=== PATIENT | male | born 1935 | race Caucasian/White ===

== ENCOUNTER → 2017-01-22 | Outpatient (CLI) | payer MEDICARE, OTHER ==
[~2017-01-22] MED LIST: AMITRYPTYLINE PO; ANTIVERT PO; ASPIRIN EC81 M1 PO; ASPIRIN81 M1 PO; ASPIRIN81 M2 PO; AVODART0.5 MG PO; B-121000 MC1 PO; CELEBREX PO; DIOVAN PO; DIOVAN160 MG PO; DOCUSATE SODIU100 MG PO; ELIQUIS5 MG PO; FIBER LAXATIVE0.52 G PO; FIBER0.52 G PO; FINASTERIDE5 MG PO; FLOMAX0.4 M1 PO; FLOMAX0.4 MG PO; HYDROCHLOROTHIA25 MG PO; JALYN 0.5-0.41 EACH PO; KEFLEX PO; LIPITOR40 MG PO; LOVENOX40 MG/0.4 SUBQ; MECLIZINE HCL12.5 MG PO; METOPROLOL SUCC50 MG PO; MULTI VITAMIN1 EACH PO; MULTI-VITAMIN1 TAB PO; MULTIVITAMIN1 UDCAP PO; NORCO1 TAB 10/3 PO; PERCOCET 5/321 UDTAB PO; PERCOCET5/325 PO; PROSCAR5 MG PO; PSYLLIUM FIBER PO; TAMOXIFEN CITRA20 MG PO; TOPROL XL50 MG PO; VALSARTAN-HCTZ1 EAC2 PO; VITAMIN B 6; VITAMIN B12 PO
--- NOTE | ~2017-01-22 | US37 ---
[facility] A Service of [facility] RADIOLOGY TEXT RESULTS PATIENT: CHARLES SHEPARD SR LOCATION: [facility] : 34 UNIT #: [id number] AGE: [address]: Hue Do MD SEX: M ORDER DR: [id number] [facility] [address] [place], [place] [address] [id number] O MR#: [id number] Acc #: [id number] NAME: CHARLES SHEPARD SR : 1935 SEX: M STUDY DATE/TIME: 01/22/2017 10:39 UNIT: [facility]IV ROOM: STUDY DESCRIPTION: US Carotid W/Doppler Bilateral Attending Physician: Hue Do M.D. Referring Physician: Hue Do M.D. Ordering Physician: Hue oD M.D. Primary Care Physician: Yessenia Carias M.D. MEDICAL IMAGING REPORT This report is preliminary unless electronic signature is present EXAM Bilateral carotid Doppler, 01/22/2017. HISTORY Carotid stenosis. History of right carotid endarterectomy. FINDINGS The right common carotid, internal carotid and external carotid arteries are widely patent without plaque or intimal thickening. Velocity of the common carotid artery is 70 cm/sec. Peak systolic velocity of the right proximal internal carotid artery is 66 cm/sec, with an end diastolic velocity of 13 cm/sec, for an ICA:CCA ratio of 0.95. External carotid artery velocity of 143 cm/sec. The vertebral artery is visualized with antegrade flow. The left common carotid, internal carotid, and external carotid arteries are patent with mild plaque in the carotid bulb and internal carotid artery. Velocity at the common carotid artery is 81 cm/sec. Peak systolic velocity of the left proximal internal carotid artery is 51 cm/sec, with an end diastolic velocity of 12 cm/sec, for an ICA:CCA ratio of 0.63. External carotid artery velocity of 156 cm/sec. The vertebral artery is visualized with antegrade flow. IMPRESSION 1. Normal appearance without stenosis of the right internal carotid artery and less than 50% stenosis of the left internal carotid artery. 2. No stenosis of the external carotid arteries. 3. Antegrade flow of the vertebral arteries. Dictated by... Hue Do M.D. [facility] A Service of [facility] RADIOLOGY TEXT RESULTS PATIENT: CHARLES SHEPARD SR LOCATION: [facility] : 34 UNIT #: [id number] AGE: [address]: Hue Do MD SEX: M ORDER DR: THIS IS AN ELECTRONICALLY VERIFIED REPORT Hue Do M.D. at 01/23/2017 11:49 AM João TD: 01/22/2017 18:54 JOB #: [id number] MEDICAL IMAGING REPORT Page 1 of 1 COPY
== END | disposition home or self-care (01) ==
LOC: CNIV 10:04
DX: I65.23 Occlusion and stenosis of bilateral carotid arteries (principal)
CPT/HCPCS: 93880

== ENCOUNTER 2017-01-27 15:34 | Emergency (ER) | payer MEDICARE, OTHER ==
--- NOTE | ~2017-01-27 | CR173 ---
[facility] A Service of [facility] RADIOLOGY TEXT RESULTS PATIENT: CHARLES SHEPARD SR LOCATION: [facility] : 34 UNIT #: [id number] AGE: [address]: Srinivas Pinto MD SEX: M ORDER DR: [id number] [facility] [address] [place], [place] [address] [id number] E MR#: [id number] Acc #: [id number] NAME: CHARLES SHEPARD SR : 1935 SEX: M STUDY DATE/TIME: 01/27/2017 15:46 UNIT: [facility] ROOM: STUDY DESCRIPTION: CR Knee 3 Views Rt Attending Physician: Srinivas Pinto M.D. Ordering Physician: Srinivas Pinto M.D. Primary Care Physician: Yessenia Carias M.D. MEDICAL IMAGING REPORT This report is preliminary unless electronic signature is present EXAM Right knee, 3 views COMPARISON None INDICATIONS 81-year-old male with right knee pain and swelling since yesterday. Patient felt a pop after rising from the seated position. FINDINGS Dense arterial calcifications are seen above and below the knee. There is no suprapatellar effusion. There is mild patellofemoral osteophyte formation. There is a moderate enthesophyte at the superior pole of the patella. Fabella is noted, a normal anatomic variant. There is suggestion of joint space narrowing at the medial and lateral compartments, not well evaluated without a weightbearing view. IMPRESSION 1. No acute fracture, dislocation or suprapatellar effusion. 2. Suggestion of significant joint space narrowing at the medial and lateral compartments, not well evaluated without weightbearing views. 3. 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 4. Diffuse arterial calcifications. Dictated by... Fred Garcia M.D. THIS IS AN ELECTRONICALLY VERIFIED REPORT Fred Garcia M.D. at 01/31/2017 8:54 AM [facility]/psc [facility] A Service of [facility] RADIOLOGY TEXT RESULTS PATIENT: CHARLES SHEPARD SR LOCATION: [facility] #: [id number] : 34 UNIT #: [id number] AGE: [address]: Srinivas Pinto MD SEX: M ORDER DR: TD: 01/27/2017 19:53 JOB #: [id number] MEDICAL IMAGING REPORT Page 1 of 1 COPY
== END 2017-01-27 16:15 | disposition home or self-care (01) ==
LOC: CED 15:34
DX: S83.421A Sprain of lateral collateral ligament of right knee, initial encounter (principal); I10 Essential (primary) hypertension; X58.XXXA Exposure to other specified factors, initial encounter; Y92.009 Unspecified place in unspecified non-institutional (private) residence as the place of occurrence of the external cause
CPT/HCPCS: 29515; 73562; 99283